=== PATIENT | female | born 1990 | race Caucasian/White ===

== ENCOUNTER → 2018-12-03 | Outpatient (CLI) | payer OTHER ==
--- NOTE | 2018-12-03 14:31 | RADIOLOGY REPORT (SQ) ---
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 PROCEDURE: PRE-PROCEDURE: Procedure was explained to the patient. She was told to expect cramping du ring the procedure, and possible spotting post procedure. PROCEDURE: The cervix was prepped in sterile fashion. Under direct visual inspection, the cervix was cannulated with the hysterosalpingogram catheter and contrast injected. TECHNIQUE: Temporal fluoroscopic images acquired during the procedure stored to PACS. FLUOROSCOPY TIME: Less than 5 seconds 6 images saved to PACS. LIMITATIONS: None. FINDINGS: UTERUS: No identified anomalies. No synechia. RIGHT ADNEXA: Normal size fallopian tube. Free spill of contrast into the peritoneal cavity. LEFT ADNEXA: Fallopian tube not visualized. POST PROCEDURE: The patient tolerated the procedure with no adverse effects. IMPRESSION: Left fallopian tube not visualized. Patent right fallopian tube with free spillage of contrast around the right ovary. COMMENT: Imaging was reviewed with the patient and her . Study performed by and interpreted by the radiologist. Quality ID [id number]: Final reports for procedures using fluoroscopy that document radiation exposure lata kelsey, or exposure time and number of fluorographic images (if radiation exposure indices are not avail able) TECHNICAL DOCUMENTATION: JOB ID: [id number] [employer]- All Rights Reserved Reading location - IP/workstation name: [email or web address]
== END ==
LOC: RAD 12:47
PROVIDERS: ATTEND Obstetrics & Gynecology Gynecology
DX: Z08 Encounter for follow-up examination after completed treatment for malignant neoplasm (principal); Z85.43 Personal history of malignant neoplasm of ovary
CPT/HCPCS: 58340; 74740

== ENCOUNTER 2020-04-14 03:01 | Inpatient (IN) | payer OTHER ==
[2020-04-14] MEDS ORDERED: OXYTOCIN/0.9 % SODIUM CHLORIDE 30 UNIT/500 ML RTUINJ IV PRN ×2 (03:03→15:13)
[2020-04-14] MEDS ORDERED: RINGERS SOLUTION,LACTATED 1,000 ML IV PRN (03:03)
[2020-04-14] MEDS ORDERED: RINGERS SOLUTION,LACTATED 1,000 ML IV ONE (03:03)
[2020-04-14] MEDS ORDERED: OXYTOCIN/0.9 % SODIUM CHLORIDE 30 UNIT/500 ML RTUINJ ONE (03:42)
[2020-04-14] MEDS ORDERED: MISOPROSTOL 0.2 MG TABLET ONE (03:42)
[2020-04-14] MEDS ORDERED: OXYTOCIN 10 UNIT/ML VIAL ONE (03:42)
[2020-04-14] MEDS ORDERED: LIDOCAINE 1% INJ-PF (10 MG/ML) 30 ML SDV ONE (03:42)
[2020-04-14 03:49] LABS: APPEARANCE,URINE SLIGHTLY-CLOUDY; BILIRUBIN,URINE NEGATIVE (NEGATIVE); COLOR,URINE YELLOW; GLUCOSE, URINE NEGATIVE (NEGATIVE); KETONES,URINE NEGATIVE (NEGATIVE); LEUKOCYTE ESTERASE,URINE TRACE (NEGATIVE); NITRITE,URINE NEGATIVE (NEGATIVE); PROTEIN,URINE NEGATIVE (NEGATIVE); URINE SPECIFIC GRAVITY 1.019; UROBILINOGEN,URINE NEGATIVE mg/dL (<2.0)
[2020-04-14 04:04] LABS: URINE METHADONE SCREEN NEGATIVE
[2020-04-14] MEDS ORDERED: EPHEDRINE SULFATE INJ 50 MG/1 ML AMPULE ONE (04:22)
[2020-04-14] MEDS ORDERED: FENTANYL/BUPIVACAINE/NS/PF 300 MCG/150 ML RTUINJ EPI ONE (04:23)
[2020-04-14] MEDS ORDERED: ROPIVACAINE HCL 0.2% INJ/PF (2 MG/ML) 20 ML SDV ONE (04:23)
[2020-04-14 04:28] LABS: ABSOLUTE LYMPHOCYTES (AUTO) 1.9 10^3/uL (0.5-4.7); ABSOLUTE MONOCYTES (AUTO) 0.7 10^3/uL (0.1-1.4); ABSOLUTE NEUT (AUTO) 6.9 10^3/uL (1.7-8.2); BASOPHILS % (AUTO) 0.5 % (0-2); EOSINOPHILS % (AUTO) 0.4 % (0-6); HEMATOCRIT 28.1 % (36.0-47.0); HEMOGLOBIN 9.3 g/dL (12.0-15.5); LYMPHOCYTES % (AUTO) 19.7 % (13-45); MEAN CORPUSCULAR HEMOGLOBIN 26.9 pg (27.0-33.4); MEAN CORPUSCULAR HGB CONC 32.9 g/dL (32.0-36.0); MEAN CORPUSCULAR VOLUME 82 fl (80-97); MONOCYTES % (AUTO) 7.1 % (3-13); PLATELET COUNT 119 10^3/uL (150-450); RED BLOOD COUNT 3.44 10^6/uL (3.72-5.28); RED CELL DISTRIBUTION WIDTH 15.1 % (11.5-14.0); SEGMENTED NEUTROPHILS % (AUTO) 72.3 % (42-78); TOTAL CELLS COUNTED % (AUTO) 100 %; WHITE BLOOD COUNT 9.5 10^3/uL (4.0-10.5)
[2020-04-14 05:08] LABS: URINE COCAINE SCREEN NEGATIVE
[2020-04-14 05:15] LABS: URINE AMPHETAMINES SCREEN NEGATIVE; URINE BARBITURATES SCREEN NEGATIVE; URINE BENZODIAZEPINES SCREEN NEGATIVE; URINE MARIJUANA (THC) SCREEN NEGATIVE; URINE PHENCYCLIDINE SCREEN NEGATIVE
--- NOTE | 2020-04-14 05:49 | Admission Physical ---
Datetime Report Generated by CPN: 04/14/2020 05:49 CURRENT ADMISSION Chief Complaint: Uterine Contractions Indication for Induction: Not Applicable Admit Impression : Term, Intrauterine ; Active Labor Admit Plan: Admit to Unit; Initiate Labor Protocol Admit Plan- Other: was scheduled for induction later today but came in in labor. ALLERGIES Medication Allergies: Yes Medication Allergies: morphine (04/14/2020); amoxicillin (04/14/2020) Latex: No Latex Allergies OBSTETRICAL HISTORY EDC: 04/09/2020 00:00 : 2 Para: 0 : 0 SAB: 1 IAB: 0 Ectopic: 0 Livin Cesareans: 0 VBACs: 0 Multiple Births: 0 Gestational Diabetes: No Rh Sensitization: No Incompetent Cervix: No JAC: No Infertility: No ART Treatment: No Uterine Anomaly: No IUGR: No Hx Previous C/S: No Macrosomia: No Hx Loss/Stillborn: No PIH: No Hx : No Placenta Previa/Abruption: No Depression/PP Depression: No PTL/PROM: No Post Hemorrhage: No Current Procedures: Ultrasound; NST Obstetrical History Comments: G1- SAB G2- current SEE RECORDS Alcohol: No Marijuana : No Cocaine: No Other Illicit Drugs: No Cigarettes: Never Smoker. 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 Surgery: Yes Heart Disease: No Hosp/Surgery: Yes Autoimmune Disorder: No Anesthetic Complications: No Kidney Disease: No Abnormal Pap Smear: No Neuro/Epilepsy: No Psychiatric Disorders: No Other Medical Diseases: No Hepatitis/Liver Disease: No Significant Family History: No Varicosities/Phlebitis: No Trauma/Violence : No Thyroid Dysfunction: No Medical History Comments: ovarian tumor and cyst removal, Right arm surgery, breast augmentation INFECTIOUS HISTORY Gonorrhea: No Genital Herpes: No Chlamydia: No Tuberculosis: No Syphilis: No Hepatitis: No HIV/AIDS Exposure: No Rash or Viral Illness: No HPV: No PHYSICAL EXAM General: Normal HEENT: Normal Neurologic: Normal Thyroid: Normal Heart: Normal Lungs: Normal Breast: Normal Back: Normal Abdomen: Normal Genitourinary Exam: Normal Extremities: Normal DTRs: Normal Pelvic Type: Adequate Vital Signs: Reviewed; Within Normal Limits VAGINAL EXAM Dilatation: 5 Effacement: 80 Station: -2 MEMBRANES Pooling: Negative Membranes: Intact FETUS A EGA: 40.5 Monitoring: External US FHR- Baseline: 140 Variability: Moderate 6-25bpm Accelerations: 15X15 Decelerations: None FHR Category: Category I Estimated Weight (gm): 3500 Presentation: Vertex PLANS FOR LABOR AND DELIVERY Labor and Delivery: None Pain Management: Epidural Feeding Preference: Formula Benefit of Breast Feed Discussed: Yes Circumcision: Yes INFORMED CONSENT Signature: with User ID: [email or web address]
[2020-04-14] MEDS ORDERED: LORAZEPAM INJ 2 MG/1 ML VIAL ONE (12:53)
[2020-04-14] MEDS ORDERED: LORAZEPAM INJ 2 MG/1 ML VIAL IV ONE (13:18)
[2020-04-14] MEDS ORDERED: ONDANSETRON HCL INJ/PF 4 MG/2 ML SDV ONE (14:25)
[2020-04-14] MEDS ORDERED: ONDANSETRON HCL INJ/PF 4 MG/2 ML SDV IV ONE (14:25)
[2020-04-14] MEDS ORDERED: METHYLERGONOVINE MALEATE INJ/PF 0.2 MG/1 ML AMPULE ONE (14:58)
[2020-04-14] MEDS ORDERED: DIBUCAINE 1% OINTMENT 28 GM TP PRN (15:13)
[2020-04-14] MEDS ORDERED: MAGNESIUM HYDROXIDE SUSP 30 ML UDCUP PO PRN (15:13)
[2020-04-14] MEDS ORDERED: PSEUDOEPHEDRINE HCL 30 MG TABLET PO PRN (15:13)
[2020-04-14] MEDS ORDERED: ACETAMINOPHEN 650 MG SUPP.RECT PR PRN (15:13)
[2020-04-14] MEDS ORDERED: PROMETHAZINE HCL INJ 25 MG/1 ML VIAL IV PRN (15:13)
[2020-04-14] MEDS ORDERED: BENZOCAINE/MENTHOL AEROSOL SPRAY 56 ML TOP PRN (15:13)
[2020-04-14] MEDS ORDERED: MEASLES,MUMPS&RUBELLA VACC/PF 0.5 ML VIAL SUBCUT PRN (15:13)
[2020-04-14] MEDS ORDERED: PROMETHAZINE HCL 25 MG TABLET PO PRN (15:13)
[2020-04-14] MEDS ORDERED: NA PHOS,M-B/NA PHOS,DI-BA (ADULT) 133 ML ENEMA PR PRN (15:13)
[2020-04-14] MEDS ORDERED: DIPHENHYDRAMINE HCL 25 MG CAPSULE PO PRN (15:13)
[2020-04-14] MEDS ORDERED: PROMETHAZINE HCL 25 MG SUPP.RECT PR PRN (15:13)
[2020-04-14] MEDS ORDERED: ZOLPIDEM TARTRATE 5 MG TABLET PO PRN (15:13)
[2020-04-14] MEDS ORDERED: GLYCERIN/WITCH HAZEL LEAF 1 EACH MED..WIPE TP PRN (15:13)
[2020-04-14] MEDS ORDERED: DIPH/PERTUSS(ACELL)/TETANUS VAC/PF 0.5 ML SYR (>=10YO) IM PRN (15:13)
[2020-04-14] MEDS ORDERED: METHYLERGONOVINE MALEATE INJ/PF 0.2 MG/1 ML AMPULE IM ONE (15:15)
[2020-04-14] MEDS ORDERED: METHYLERGONOVINE MALEATE INJ/PF 0.2 MG/1 ML AMPULE IV PRN (15:18)
[2020-04-14] MEDS ORDERED: OXYTOCIN 10 UNIT/ML VIAL IM ONE (15:20)
--- NOTE | 2020-04-14 16:21 | Birth Certificate Data ---
Cert Data Datetime Report Generated by N: 04/14/2020 16:21 CERTIFICATE DATA Delivery Provider: Armando Gauthier MD (Annotations: Data stored by [employer] on behalf of user) (04/10/2020 14:30:Sheila Minaya RN) 47a. Care: Yes (04/10/2020 14:30:WAI Coe) 47b. Date of First Visit: 08/21/2019 00:00 (04/10/2020 14:30:Nikki Alvarado RN) 47c. Date of Last Visit: 04/10/2020 00:00 (04/10/2020 14:30:Nikki Alvarado RN) 47d. Number of Visits: 11 (04/10/2020 14:30:Nikki Alvarado RN) 48a. Number of Prev Live Births: 0 (04/10/2020 14:30:Nikki Alvarado RN) 48b. Now Livin (04/10/2020 14:30:Nikki Alvarado RN) 48c. Live Births Now : 0 (04/10/2020 14:30:QS system process) 48e. Losses: 0 (04/10/2020 14:30:Nikki Alvarado RN) RISK FACTORS IN THIS 49a. Diabetes: No (04/10/2020 14:30:Nikki Alvarado RN) 49b. Hypertension: No (04/10/2020 14:30:Nikki Alvarado RN) 49c. Previous Births: 0 (04/10/2020 14:30:Nikki Alvarado RN) 49d. Stillborns: No (04/10/2020 14:30:Nikki Alvarado RN) 49d. IUGR: No (04/10/2020 14:30:Nikki Alvarado RN) 49e. Infertility Treatment: No (04/10/2020 14:30:Nikki Alvarado RN) 49f. Previous Cesareans: 0 (04/10/2020 14:30:Nikki Alvarado RN) Mother's Height 50b. Height Inches: 61 (04/14/2020 03:49:QS system process) Mother's Weight 51a. Pre- Weight (lbs): 133 (04/10/2020 14:30:Salena Galloway RN) 51b. Weight at Delivery (lbs): 180 (04/14/2020 03:49:QS system process) 52. Dt Last Normal Menses Began: 07/04/2019 00:00 (04/10/2020 14:30:Nikki Alvarado RN) Infections Present/Treated 53a. Gonorrhea: No (04/10/2020 14:30:Nikki Alvarado RN) Results this Hospital Visit : Negative (04/10/2020 14:30:Nikki Alvarado RN) 53b. Syphilis: No (04/10/2020 14:30:Nikki Alvarado RN) Results this Hospital Visit: NONREACTIVE (04/14/2020 03:52:QS system process) 53c. Chlamydia: No (04/10/2020 14:30:Nikki Alvarado RN) Results this Hospital Visit: Negative (04/10/2020 14:30:Nikki Alvarado RN) 53d. Hepatitis B: No (04/10/2020 14:30:Nikki Alvarado RN) Results this Hospital Visit: Negative (04/10/2020 14:30:Nikki Alvarado RN) 53e. Hepatitis C: Negative (04/10/2020 14:30:Nikki Alvarado RN) 53h. Mother Tested for HBsAG: Yes (04/10/2020 14:30:Nikki Alvarado RN) 53i. Date Tested: 08/21/2019 00:00 (04/10/2020 14:30:Nikki Alvarado RN) 53j. Test Result: Negative (04/10/2020 14:30:Nikki Alvarado RN) Obstetric Procedures 54a, b, c. Obstetric Procedures: Ultrasound; NST (04/10/2020 14:30:Nikki Alvarado RN) Cigarette Smoking Cigarette Smoking: Never Smoker. [id number] (04/10/2020 14:30:Nikki Alvarado RN) 55a. 3 Months Before Preg - Ci (04/10/2020 14:30:Nikki Alvarado RN) 55a. Packs: 0 (04/10/2020 14:30:Nikki Alvarado RN) 55b. 1st Trimester of Preg- Ci (04/10/2020 14:30:Nikki Alvarado RN) 55b. Packs: 0 (04/10/2020 14:30:Nikki Alvarado RN) 55c. 2nd Trimester of Preg- Ci (04/10/2020 14:30:Nikki Alvarado RN) 55c. Packs: 0 (04/10/2020 14:30:Nikki Alvarado RN) 55d. 3rd Trimester of Preg- Ci (04/10/2020 14:30:Nikki Alvarado RN) 55d. Packs: 0 (04/10/2020 14:30:Nikki Alvarado RN) Onset of Labor 56a. PROM >12 Hrs: 8.82 (04/10/2020 14:30:QS system process) 56b. Precipitous Labor <3 Hrs: 11 (04/10/2020 14:30:QS system process) 56c. Prolonged Labor > 20 Hrs: 11 (04/10/2020 14:30:QS system process) 57a. Induction of Labor: N/A (04/10/2020 14:30:Geneva Kimble RN) 57c. Non-Vertex Presentation A: Vertex (04/10/2020 14:30:Sheila Minaya RN) 57d. Steroids - Lung Mat: None (04/10/2020 14:30:Geneva Kimble RN) 57d. Steroids - Lung Mat: Not Applicable (04/10/2020 14:30:Geneva Kimble RN) 57g. Moderate/Heavy Meconium: Clear (04/14/2020 06:02:Nikki Alvarado RN) 57h. Intolerance of Labor: N/A (04/10/2020 14:30:Salena Galloway RN) : N/A (04/10/2020 14:30:Salena Galloway RN) 57i. Epidural/Spinal Anesthesia: Epidural (04/10/2020 14:30:Sheila Minaya RN) Method of Delivery 58a. Forceps - Unsuccessful A: N/A (04/10/2020 14:30:Sheila Minaya RN) 58b. Vacuum - Unsuccessful A: Successful (04/10/2020 14:30:Armando Gauthier MD ([facility])) 58c. Presentation at 58c. Presentation at - A : Vertex (04/10/2020 14:30:Sheila Minaya RN) 58c. Presentation at - A : N/A (04/10/2020 14:30:Sheila Minaya RN) 58c. Presentation at - A : Cephalic (04/14/2020 03:27:Nikki Alvarado RN) Final Route and Method of Del 58d. Baby A Route/Delivery: Vaginal (04/10/2020 14:30:Sheila Minaya RN) 58e. Trial of Labor Attempted: No (04/10/2020 14:30:Sheila Minaya RN) 58e. Trial of Labor Attempted A: N/A (04/10/2020 14:30:Sheila Minaya RN) 58e. Trial of Labor Attempted B: N/A (04/10/2020 14:30:Sheila Minaya RN) Maternal Morbidity 59b. 3rd or 4th Degree Lacs: Perineal (04/10/2020 14:30:Armando Gauthier, MD ([facility])) 59b. 3rd or 4th Degree Lacs: Fourth Degree (04/10/2020 14:30:Salena Galloway RN) Birthweight Baby A: 4270 (04/10/2020 14:30:Sheila Minaya RN) 60a. Pounds : 9 (04/10/2020 14:30:QS system process) 60b. Ounces: 7 (04/10/2020 14:30:QS system process) 61. GA at Delivery Baby A: 40.5 (04/10/2020 14:30:Sheila Minaya RN) : Full Term- 39- 40.6 Weeks (04/10/2020 14:30:QS system process) 62a. 5 Minute Baby A: 8 (04/10/2020 14:30:QS system process)
--- NOTE | 2020-04-14 16:21 | Delivery Summary ---
Del Sum A-C Datetime Report Generated by CPN: 04/14/2020 16:21 DELIVERY PERSONNEL DELIVERY PERSONNEL: [id number] Delivery Doctor:: Armando Gauthier MD (Annotations: Data stored by [employer] on behalf of user) Nurse Hand Heel Seat Fitter Certified:: Rama Vallejo CNM Labor and Delivery Nurse:: Salena Galloway RNair cargo specialist Nurse:: WAI Guo Nursery Nurse:: Ольга Cevallos RN Nursery Nurse:: KENNY Ricardo Tech/BOAT CREW DECK HAND: Elena Rosenbaum, TEST CENTER MANAGER MATERNAL INFORMATION Delivery Anesthesia: Epidural Medications After Delivery: Pitocin 10 Units IM; Pitocin 30 Units in 500ml NS/D5W; Methergine 0.2mg IM; Cytotec 1000mcg Per Rectum/Vagina Delivery QBL: 400 Maternal Complications: None LABOR SUMMARY EDC: 04/09/2020 00:00 No. Babies in Womb: 1 Attempted: No Labor Anesthesia: Epidural LABOR INFORMATION Reason for Induction: Not Applicable Onset of Labor: 04/14/2020 03:30 Complete Dilatation: 04/14/2020 10:19 Oxytocin: N/A Group B Beta Strep: Negative Antibiotics # of Doses: 0 Name of Antibiotic Given: N/A Steroids Given: None Reason Steroids Not Administered: Not Applicable MEMBRANES Membranes Rupture Method: Artificial Rupture of Membranes: 04/14/2020 06:02 Length of Rupture (hr): 8.82 Amniotic Fluid Color: Clear Amniotic Fluid Amount: Moderate Amniotic Fluid Odor: Normal STAGES OF LABOR Stage 1 hr: 6 Stage 1 min: 49 Stage 2 hr: 4 Stage 2 min: 32 Stage 3 hr: 0 Stage 3 min: 2 Total Time in Labor hr: 11 Total Time in Labor min: 23 VAGINAL DELIVERY Episiotomy: None Laceration #1: Perineal Laceration Extension #1: Fourth Degree Laceration Repair: Yes Laceration Repair Note: ext spinxter repaired in three layers rectal mucosa repaired with 2-0 vicryl remainder in usual fashion Sponge Count Correct: Yes CSECTION DELIVERY Primary Indication: N/A Secondary Indication: N/A CSection Incidence: N/A Labor: N/A Elective: N/A CSection Incision: N/A BABY A INFORMATION Delivery Date/Time: 04/14/2020 14:51 Method of Delivery: Vaginal Nurse Controlled Delivery: No Born in Route : No : N/A Forceps: N/A Vacuum Extraction: Successful Shoulder Dystocia : Yes ASSISTED DELIVERY BABY A Vacuum/Forceps Comment: 3 pulls no pop offs SHOULDER DYSTOCIA BABY A Delivery of Head: 04/14/2020 14:49 Time Head to Delivery : 2.0 1st Intervention to Resolve: McRobert's Maneuver 2nd Intervention to Resolve: Suprapubic Pressure 3rd Intervention to Resolve: Posterior Arm Release Verify NO Fundal Pressure: No Fundal Pressure Applied Arm Under Symphisis at Del: Left Shoulder Dystocia Comments: 1 min 30 sec time PRESENTATION/POSITION BABY A Presentation: Cephalic Cephalic Presentation: Vertex Vertex Position: Left Occipital Anterior Breech Presentation: N/A PLACENTA INFORMATION BABY A Placenta Delivery Time : 04/14/2020 14:53 Placenta Method of Delivery: Spontaneous Placenta Status: Delivered SCORES BABY A Heart Rate 1 min: >100 bpm (Annotations: Data stored by [facility] on behalf of user) Resp Effort 1 min: Good Cry Reflex Irritability 1 min: Grimace Muscle Tone 1 min: Some Flexion of Extremities Color 1 min: Body Jet, Extremities Blue Resuscitation Effort 1 min: Tactile Stimulation SCORE 1 MIN: 7 Heart Rate 5 min: >100 bpm Resp Effort 5 min: Good Cry Reflex Irritability 5 min: Grimace Muscle Tone 5 min: Some Flexion of Extremities Color 5 min: Completely Jet Resuscitation Effort 5 min: Tactile Stimulation SCORE 5 MIN: 8 INFANT INFORMATION BABY A Gestational Age at Delivery: 40.5 Gestational Status: Full Term- 39- 40.6 Weeks Infant Outcome : Liveborn Condition : Fair Infant Sex: Male WEIGHT/LENGTH BABY A Infant Birthweight (gm): 4270 Weight (lb): 9 Weight (oz): 7 Infant Length (in): 21.50 Infant Length (cm): 54.61 CORD INFORMATION BABY A No. Cord Vessels: 3 Nuchal Cord : N/A Cord Blood Taken: Yes-For Storage ([facility] [place] Blood type +) Suction: None ASSESSMENT BABY A Infant Complications: Shoulder Dystocia Physical Findings at Delivery: Within Normal Limits; Molding of the Head Infant Respirations: Grunting; Nasal Flaring; Sternal Retractions Skin to Skin: No Material Scheduler/ALS Called : No Infant Care By: Keyon Torres Transferred To: [facility] BABY B INFORMATION : N/A SIGNATURES Signature: with User ID: [email or web address]
[2020-04-14 16:49] LABS: HEMATOCRIT 26.2 % (36.0-47.0); HEMOGLOBIN 8.7 g/dL (12.0-15.5); MEAN CORPUSCULAR HEMOGLOBIN 26.9 pg (27.0-33.4); MEAN CORPUSCULAR HGB CONC 33.3 g/dL (32.0-36.0); MEAN CORPUSCULAR VOLUME 81 fl (80-97); PLATELET COUNT 125 10^3/uL (150-450); RED BLOOD COUNT 3.24 10^6/uL (3.72-5.28); RED CELL DISTRIBUTION WIDTH 14.8 % (11.5-14.0); WHITE BLOOD COUNT 16.3 10^3/uL (4.0-10.5)
[2020-04-14] MEDS ORDERED: ACETAMINOPHEN WITH CODEINE #3 TABLET ONE (16:51)
[2020-04-14] MEDS ORDERED: BENZOCAINE/MENTHOL AEROSOL SPRAY 56 ML ONE (16:52)
[2020-04-14] MEDS: ACETAMINOPHEN WITH CODEINE #3 TABLET PO PRN ×2 (16:59→21:53)
[2020-04-14 17:17] LABS: ABSOLUTE LYMPHOCYTES# (MANUAL) 0.5 10^3/uL (0.5-4.7); ABSOLUTE MONOCYTES # (MANUAL) 0.8 10^3/uL (0.1-1.4); BASOPHILS % (MANUAL) 0 % (0-2); EOSINOPHILS % (MANUAL) 0 % (0-6); LYMPHOCYTES % (MANUAL) 3 % (13-45); MONOCYTES % (MANUAL) 5 % (3-13); PLATELET COMMENT DECREASED; SEGMENTED NEUTROPHILS % (MAN) 92 % (42-78); TOTAL CELLS COUNTED 100
[2020-04-14 17:18] LABS: HYPOCHROMASIA SLIGHT
[2020-04-14] MEDS: FERROUS SULFATE 325 MG TABLET PO SCH (20:21)
[2020-04-14] MEDS: DOCUSATE SODIUM 100 MG CAPSULE PO SCH (20:21)
[2020-04-14] MEDS: IBUPROFEN 800 MG TABLET PO SCH (21:53)
[2020-04-14] MEDS: FAMOTIDINE 20 MG TABLET PO SCH (21:54)
[2020-04-15] MEDS: IBUPROFEN 800 MG TABLET PO SCH ×3 (05:52→21:02)
[2020-04-15] MEDS: ACETAMINOPHEN WITH CODEINE #3 TABLET PO PRN ×3 (07:05→21:02)
[2020-04-15 08:06] LABS: HEMATOCRIT 21.5 % (36.0-47.0); MEAN CORPUSCULAR HEMOGLOBIN 26.5 pg (27.0-33.4); MEAN CORPUSCULAR HGB CONC 32.7 g/dL (32.0-36.0); MEAN CORPUSCULAR VOLUME 81 fl (80-97); PLATELET COUNT 110 10^3/uL (150-450); RED BLOOD COUNT 2.65 10^6/uL (3.72-5.28); RED CELL DISTRIBUTION WIDTH 15.4 % (11.5-14.0); WHITE BLOOD COUNT 12.8 10^3/uL (4.0-10.5)
[2020-04-15] MEDS ORDERED: ACETAMINOPHEN 325 MG TABLET PO PRN (08:43)
[2020-04-15] MEDS ORDERED: DIPHENHYDRAMINE HCL 25 MG CAPSULE PO PRN (08:43)
[2020-04-15] MEDS ORDERED: NORMAL SALINE 250 ML IV PRN ×2 (08:43)
--- NOTE | 2020-04-15 08:58 | PDOC PROGRESS REPORT ---
Subjective-OB Progress Note for:: 04/15/20 Subjective: 29yo G2 now P1 s/p ppd 1. Pt ambulating and voiding without difficulty. Reports minimal bleeding and pain well tolerated with medication. Denies SOB/lightheadedness/dizziness, No other concerns today Physical Exam (OB) Vital Signs: Temp Pulse Resp BP Pulse Ox 97.4 F 97 16 109/63 99 04/15/20 08:17 04/15/20 08:17 04/15/20 08:17 04/15/20 08:17 04/15/20 08:17 Intake & Output 04/14/20 04/15/20 04/16/20 06:59 06:59 06:59 Intake Total 1000 Output Total 850 Balance 150 Weight 82.2 kg - General General Appearance: Appears well In distress: None - PIH/Pre-Eclampsia Clonus: Negative Headache: Absent Epigastric Pain: No Visual Changes: No - Maternal Morbidity 59. Maternal Morbidity (serious complications experinced by the mother associated with labor and delivery: Maternal transfusion, Third or fourth degree perineal laceration - Episiotomy/Laceration Site Condition: Well Approximated - Lochia Lochia Amount: Small 10-25 ml Lochia Color: Rubra/Red - Abdomen Description: Soft Hernia Present: No Fundal Description: Firm, Midline Fundal Height: u/u - u/2 - Respiratory Respiratory Status: No respiratory distress - Extremities Upper extremity: Normal inspection Lower extremities: Normal inspection - Neurological Cognition: Normal Orientation: AAOx4 - Psychological Associated symptoms: Normal affect, Normal mood Objective-Diagnostic Laboratory: 04/15/20 07:34 04/14/20 04/15/20 16:37 07:34 WBC 16.3 H 12.8 H RBC 3.24 L 2.65 L Hgb 8.7 L 7.0 L Hct 26.2 L 21.5 L MCV 81 81 MCH 26.9 L 26.5 L MCHC 33.3 32.7 RDW 14.8 H 15.4 H Plt Count 125 L 110 L Seg Neutrophils % Not Reportable Assessment and Plan(PN) - Assessment and Plan (1) Vacuum-assisted vaginal delivery Is this a current diagnosis for this admission?: Yes Plan: routine pp care (2) Shoulder dystocia during labor and delivery, delivered Is this a current diagnosis for this admission?: Yes Plan: delivered (3) Fourth degree laceration of perineum, delivered, current hospitalization Is this a current diagnosis for this admission?: Yes Plan: continue to monitor for s/s of infection, will need follow up in 1 week (4) Anemia complicating , third trimester Is this a current diagnosis for this admission?: Yes Plan: increase dietary iron and FeSO4 supplementation (5) Acute blood loss anemia Is this a current diagnosis for this admission?: Yes Plan: agreeable to blood transfusion 2 units ordered - Time Spent with Patient Time with patient: 15-25 minutes Medications reviewed and adjusted accordingly: Yes - Disposition Anticipated Discharge Disposition: Home, Self Care Anticipated Discharge Timeframe: within 24 hours
[2020-04-15] MEDS: DOCUSATE SODIUM 100 MG CAPSULE PO SCH ×2 (09:25→17:16)
[2020-04-15] MEDS: FERROUS SULFATE 325 MG TABLET PO SCH ×2 (09:25→17:16)
[2020-04-15] MEDS: FAMOTIDINE 20 MG TABLET PO SCH ×2 (09:25→21:01)
[2020-04-15] MEDS: SENNOSIDES/DOCUSATE 8.6-50 MG 1 EACH TABLET PO SCH (09:25)
[2020-04-15] MEDS: PRENATAL VITAMIN W DHA CAPSULE PO SCH (09:26)
[2020-04-15 20:59] LABS: HEMATOCRIT 29.8 % (36.0-47.0); MEAN CORPUSCULAR HEMOGLOBIN 27.1 pg (27.0-33.4); MEAN CORPUSCULAR HGB CONC 33.3 g/dL (32.0-36.0); MEAN CORPUSCULAR VOLUME 82 fl (80-97); PLATELET COUNT 134 10^3/uL (150-450); RED BLOOD COUNT 3.65 10^6/uL (3.72-5.28)
[2020-04-15 21:00] LABS: HEMOGLOBIN 9.9 g/dL (12.0-15.5)
[2020-04-16] MEDS: IBUPROFEN 800 MG TABLET PO SCH (06:29)
[2020-04-16] MEDS: ACETAMINOPHEN WITH CODEINE #3 TABLET PO PRN ×2 (06:57→13:25)
[2020-04-16] MEDS: FAMOTIDINE 20 MG TABLET PO SCH (09:19)
[2020-04-16] MEDS: PRENATAL VITAMIN W DHA CAPSULE PO SCH (09:19)
[2020-04-16] MEDS: DOCUSATE SODIUM 100 MG CAPSULE PO SCH (09:19)
[2020-04-16] MEDS: FERROUS SULFATE 325 MG TABLET PO SCH (09:20)
[2020-04-16] MEDS: SENNOSIDES/DOCUSATE 8.6-50 MG 1 EACH TABLET PO SCH (09:20)
--- NOTE | 2020-04-16 10:03 | PDOC DISCHARGE SUMMARY ---
Impression - Admit/DC Date/PCP Admission Date/Primary Care Provider: 04/14/20 03:01 DAVIE PRADO MD Discharge Date: 04/16/20 - PP Day #2, doing well, UOB, no complaints this morning. hx 4th degree laceration w/ VAD. - Discharge Diagnosis (1) Normal course Is this a current diagnosis for this admission?: Yes (2) Acute blood loss anemia Is this a current diagnosis for this admission?: Yes (3) Anemia complicating , third trimester Is this a current diagnosis for this admission?: Yes (4) Fourth degree laceration of perineum, delivered, current hospitalization Is this a current diagnosis for this admission?: Yes (5) Shoulder dystocia during labor and delivery, delivered Is this a current diagnosis for this admission?: Yes (6) Vacuum-assisted vaginal delivery Is this a current diagnosis for this admission?: Yes (7) Blood transfusion during current hospitalization Is this a current diagnosis for this admission?: Yes - Additional Information Resuscitation Status: Full Code Discharge Diet: As Tolerated, Other (Comments) - soft foods, increase fiber Referrals: DAVIE PRADO MD [Primary Care Provider] - Prescriptions: Docusate Sodium [Colace 100 mg Capsule] 100 mg PO BID #60 capsule Ibuprofen [Motrin 800 mg Tablet] 800 mg PO Q8 #60 tablet Acetaminophen with Codeine [Tylenol #3 Tablet] 1 each PO Q4HP PRN #24 tablet PRN Reason: Pain Scale Of 4 Home Medications: Prenat 115/Iron Fum/Folic/Dss [ 19 Tablet] 1 tab PO DAILY 04/14/20 Acetaminophen with Codeine [Tylenol #3 Tablet] 1 each PO Q4HP PRN #24 tablet 04/16/20 Docusate Sodium [Colace 100 mg Capsule] 100 mg PO BID #60 capsule 04/16/20 Ibuprofen [Motrin 800 mg Tablet] 800 mg PO Q8 #60 tablet 04/16/20 HPI Reason(s) for Admission: Onset of Labor Procedures: Ultrasound, Management of Obstetric Complications Intrapartum Procedure(s): Vacuum Extraction Complication(s): Transfusion, Hemorrhage-Uterine Atony Laceration-Degree: 4th Hospital Course 59. Maternal Morbidity (serious complications experinced by the mother associated with labor and delivery: Maternal transfusion, Third or fourth degree perineal laceration Results Laboratory Results: WBC 15.0 10^3/uL (4.0-10.5) H 04/15/20 20:50 RBC 3.65 10^6/uL (3.72-5.28) L 04/15/20 20:50 Hgb 9.9 g/dL (12.0-15.5) L D 04/15/20 20:50 Hct 29.8 % (36.0-47.0) L 04/15/20 20:50 MCV 82 fl (80-97) 04/15/20 20:50 MCH 27.1 pg (27.0-33.4) 04/15/20 20:50 MCHC 33.3 g/dL (32.0-36.0) 04/15/20 20:50 RDW 15.0 % (11.5-14.0) H 04/15/20 20:50 Plt Count 134 10^3/uL (150-450) L 04/15/20 20:50 Lymph % (Auto) Not Reportable 04/14/20 16:37 Liberty % (Auto) Not Reportable 04/14/20 16:37 Eos % (Auto) Not Reportable 04/14/20 16:37 Baso % (Auto) Not Reportable 04/14/20 16:37 Absolute Neuts (auto) Not Reportable 04/14/20 16:37 Absolute Lymphs (auto) Not Reportable 04/14/20 16:37 Absolute Monos (auto) Not Reportable 04/14/20 16:37 Absolute Eos (auto) Not Reportable 04/14/20 16:37 Absolute Basos (auto) Not Reportable 04/14/20 16:37 Total Counted 100 04/14/20 16:37 Seg Neutrophils % Not Reportable 04/14/20 16:37 Seg Neuts % (Manual) 92 % (42-78) H 04/14/20 16:37 Lymphocytes % (Manual) 3 % (13-45) L 04/14/20 16:37 Monocytes % (Manual) 5 % (3-13) 04/14/20 16:37 Eosinophils % (Manual) 0 % (0-6) 04/14/20 16:37 Basophils % (Manual) 0 % (0-2) 04/14/20 16:37 Abs Neuts (Manual) 15.0 10^3/uL (1.7-8.2) H 04/14/20 16:37 Abs Lymphs (Manual) 0.5 10^3/uL (0.5-4.7) 04/14/20 16:37 Abs Monocytes (Manual) 0.8 10^3/uL (0.1-1.4) 04/14/20 16:37 Absolute Eos (Manual) 0.0 10^3/uL (0.0-0.6) 04/14/20 16:37 Abs Basophils (Manual) 0.0 10^3/uL (0.0-0.2) 04/14/20 16:37 Platelet Comment DECREASED 04/14/20 16:37 Hypochromasia SLIGHT 04/14/20 16:37 Urine Color YELLOW 04/14/20 03:17 Urine Appearance SLIGHTLY-CLOUDY 04/14/20 03:17 Urine pH 5.0 (5.0-9.0) 04/14/20 03:17 Ur Specific Newell 1.019 04/14/20 03:17 Urine Protein NEGATIVE mg/dL (NEGATIVE) 04/14/20 03:17 Urine Glucose (UA) NEGATIVE mg/dL (NEGATIVE) 04/14/20 03:17 Urine Ketones NEGATIVE mg/dL (NEGATIVE) 04/14/20 03:17 Urine Blood MODERATE (NEGATIVE) H 04/14/20 03:17 Urine Nitrite NEGATIVE (NEGATIVE) 04/14/20 03:17 Urine Bilirubin NEGATIVE (NEGATIVE) 04/14/20 03:17 Urine Urobilinogen NEGATIVE mg/dL (<2.0) 04/14/20 03:17 Ur Leukocyte Esterase TRACE (NEGATIVE) H 04/14/20 03:17 Urine Ascorbic Acid NEGATIVE (NEGATIVE) 04/14/20 03:17 Urine Opiates Screen NEGATIVE 04/14/20 03:17 Urine Methadone Screen NEGATIVE 04/14/20 03:17 Ur Barbiturates Screen NEGATIVE 04/14/20 03:17 Ur Phencyclidine Scrn NEGATIVE 04/14/20 03:17 Ur Amphetamines Screen NEGATIVE 04/14/20 03:17 U Benzodiazepines Scrn NEGATIVE 04/14/20 03:17 Urine Cocaine Screen NEGATIVE 04/14/20 03:17 U Marijuana (THC) Screen NEGATIVE 04/14/20 03:17 RPR NONREACTIVE (NONREACTIVE) 11/17/20 03:52 Blood Type B POSITIVE 04/14/20 03:52 Blood Type Confirm B POSITIVE 04/15/20 09:23 Antibody Screen NEGATIVE 04/14/20 03:52 Crossmatch See Detail 04/14/20 03:52 Plan Health Concerns: stool softner, increase fiber Plan of Treatment: f/up with Dr Gauthier in 1-2 wks since had 4th degree tear. Time Spent: Less than 30 Minutes
[2020-04-16 12:19] VITALS: BP 128/82
== END 2020-04-16 14:00 | disposition home or self-care (01) | DRG 768 ==
LOC: LR 03:01 → 2S 17:40
PROVIDERS: ADMIT Obstetrics & Gynecology; ATTEND Obstetrics & Gynecology
PROC: 10D07Z6 Extraction of Products of Conception, Vacuum, Via Natural or Artificial Opening (ICD-10-PCS; principal; 2020-04-14)
PROC: 0DQP0ZZ Repair Rectum, Open Approach (ICD-10-PCS; 2020-04-14)
PROC: 30233N1 Transfusion of Nonautologous Red Blood Cells into Peripheral Vein, Percutaneous Approach (ICD-10-PCS; 2020-04-15)
DX: O48.0 Post-term pregnancy (principal); Z37.0 Single live birth; O70.3 Fourth degree perineal laceration during delivery; D62 Acute posthemorrhagic anemia; Z3A.40 40 weeks gestation of pregnancy; O66.0 Obstructed labor due to shoulder dystocia; O99.02 Anemia complicating childbirth
CPT/HCPCS: 1967; 36415; 36430; 80307; 81005; 85025; 85027; 86592; 86850; 86900; 86901; 86920; J2060; J2210; J2405; J2590; J2795; J3010; J3490; P9016